=== PATIENT | female | born 1955 | race Two or more races ===

== ENCOUNTER 2023-09-25 08:56 | Emergency (ER) | payer OTHER ==
[~2023-09-25] VITALS: Ht 157.5 cm; Wt 90.0 kg
[2023-09-25 09:43] VITALS: BP 160/73; PULSE 116; RESP 18; TEMP 97.3; O2SAT 98
[2023-09-25] MEDS ORDERED: TETANUS-DIPTH-ACEL PERTUSSIS 0.5ML SYR Tdap IM ONE (10:00)
[2023-09-25] MEDS ORDERED: LET TOPICAL SOLN 5 ML TOP ONE (10:00)
== END 2023-09-25 10:55 | disposition home or self-care (01) ==
LOC: ER 08:56
DX: S01.511A Laceration without foreign body of lip, initial encounter (principal); W18.09XA Striking against other object with subsequent fall, initial encounter; Y93.89 Activity, other specified; Y92.89 Other specified places as the place of occurrence of the external cause; Y99.8 Other external cause status
CPT/HCPCS: 40650; 90471; 90715; 99284; J3490

== ENCOUNTER 2023-10-02 17:09 | Emergency (ER) | payer OTHER ==
[~2023-10-02] VITALS: Ht 157.5 cm; Wt 89.8 kg
[2023-10-02 18:51] VITALS: O2SAT 98
[2023-10-02 19:07] VITALS: BP 148/83; PULSE 91; RESP 18; TEMP 97.7; O2SAT 98
== END 2023-10-02 19:04 | disposition home or self-care (01) ==
LOC: ER 17:09
DX: S01.511D Laceration without foreign body of lip, subsequent encounter (principal); I10 Essential (primary) hypertension; E78.5 Hyperlipidemia, unspecified; E03.9 Hypothyroidism, unspecified; Z88.2 Allergy status to sulfonamides; X58.XXXD Exposure to other specified factors, subsequent encounter